=== PATIENT | female | born 1960 | race Hispanic/Latino ===

== ENCOUNTER → 2017-12-12 | Outpatient (CLI) | payer OTHER ==
[~2017-12-12] MED LIST: LIDOCAINE HCL 1% LOCAL INJ 20 ML VIAL ONE
--- NOTE | 2017-12-12 09:59 | Diagnostic Imaging Report ---
Ultrasound-guided thyroid biopsy 12/12/2017 Pre-Procedure Diagnosis: Right thyroid nodule Post-procedure Diagnosis:Right thyroid nodule Ampoule Washing Machine Operator: Dafne White Welding Machine Operator Gas Metal Arc: None Sedation: None. 1% lidocaine local anesthesia. Estimate blood loss: <5 mL Blood administered: None Complications: None Implants/Grafts: None Specimen: 25-gauge needle biopsy x 6 Procedure: Informed consent was obtained and the patient positioned supine in the ultrasound suite. A timeout was performed, followed by preliminary ultrasound of the thyroid. The neck was prepped and draped in standard sterile fashion. Using real-time ultrasound guidance a 25-gauge needle was advanced into the thyroid nodule of interest. An image was stored in the electronic medical record. The sample was submitted to pathology. The procedure was repeated an additional 5 times, using identical technique with image capture for the medical record. At the end of the procedure a sterile dressing was applied. Findings: 4 cm right thyroid nodule. Impression: Successful ultrasound-guided right thyroid nodule needle biopsy. This report was generated with voice-recognition technology. Errors in electrician helper automotive can occur. Please interpret accordingly and contact a radiologist if there are any questions regarding the report. Signed by: Dr. Bandar White M.D. on 12/12/2017 9:55 AM
--- NOTE | 2017-12-12 09:59 | Diagnostic Imaging Report ---
Ultrasound-guided thyroid biopsy 12/12/2017 Pre-Procedure Diagnosis: Right thyroid nodule Post-procedure Diagnosis:Right thyroid nodule Product/Device Technologist: Dafne White Retail Coverage Merchandiser: None Sedation: None. 1% lidocaine local anesthesia. Estimate blood loss: <5 mL Blood administered: None Complications: None Implants/Grafts: None Specimen: 25-gauge needle biopsy x 6 Procedure: Informed consent was obtained and the patient positioned supine in the ultrasound suite. A timeout was performed, followed by preliminary ultrasound of the thyroid. The neck was prepped and draped in standard sterile fashion. Using real-time ultrasound guidance a 25-gauge needle was advanced into the thyroid nodule of interest. An image was stored in the electronic medical record. The sample was submitted to pathology. The procedure was repeated an additional 5 times, using identical technique with image capture for the medical record. At the end of the procedure a sterile dressing was applied. Findings: 4 cm right thyroid nodule. Impression: Successful ultrasound-guided right thyroid nodule needle biopsy. This report was generated with voice-recognition technology. Errors in principal gifts officer can occur. Please interpret accordingly and contact a radiologist if there are any questions regarding the report. Signed by: Dr. Bandar White M.D. on 12/12/2017 9:55 AM
== END ==
LOC: US 08:19
PROVIDERS: ATTEND Otolaryngology Otolaryngology/Facial Plastic Surgery
DX: E04.2 Nontoxic multinodular goiter (principal)
CPT/HCPCS: 10022; 76942; 88112; 88305; J2001

== ENCOUNTER → 2018-01-02 | Outpatient (CLI) | payer OTHER ==
--- NOTE | 2018-01-02 16:03 | Diagnostic Imaging Report ---
PROCEDURE:BIOPSY THYROID FNA COMPARISON:[facility], [place], OUTSIDE ULTRASOUND IMAGES, 11/22/2017, 8:47. Patients [facility], US, BIOPSY THYROID FNA, 12/12/2017, 9:11. INDICATIONS:RIGHT THYROID NODULE FINDINGS: The patients right neck was prepped and draped in sterile fashion and after the procedure was explained and informed consent was obtained. Sonographic images revealed a 3.4 x 2.0 x 2.0 cm mildly heterogeneous iso-to slightly hyperechoic nodule in the mid and inferior aspect of the right thyroid lobe, with increased peripheral and internal vascularity. Lidocaine 1% was used for local pain control. Under ultrasonic guidance, 5 passes were performed utilizing 10 cc syringes and 25 gauge needles. 3 additional passes were performed utilizing 10 cc syringes and 22 gauge needles. Samples were given to Pathology The patient tolerated the procedure well. Postprocedure images showed mild swelling of the anterior aspect of the thyroid above the nodule after multiple punctures, without well-defined fluid collections in the thyroid, overlying muscle, subcutaneous tissue or skin. CONCLUSION: 1. Ultrasound guided fine needle aspiration of right thyroid nodule. Luisito oR M.D. Dictated by: Luisito Ro M.D. on 01/02/2018 at 16:08 Electronically approved by: Luisito Ro M.D. on 01/02/2018 at 16:08
--- NOTE | 2018-01-02 16:04 | Diagnostic Imaging Report ---
PROCEDURE:ULTRASOUND GUIDANCE FOR PROCEDURE COMPARISON:None. INDICATIONS:RIGHT THYROID NODULE CONCLUSION: Please see previously dictated report under biopsy thyroid FNA performed same date Luisito Ro M.D. Dictated by: Luisito Ro M.D. on 01/02/2018 at 16:09 Electronically approved by: Luisito Ro M.D. on 01/02/2018 at 16:09
== END ==
LOC: US 12:36
PROVIDERS: ATTEND Otolaryngology Otolaryngology/Facial Plastic Surgery
DX: E04.2 Nontoxic multinodular goiter (principal)
CPT/HCPCS: 10022; 76942; 88112; 88172; 88173; 88305; J2001